=== PATIENT | female | born 1965 | race Caucasian/White ===

== ENCOUNTER 2020-09-16 06:02 | Day surgery (SDC) | payer OTHER ==
[2020-09-15 15:34] VITALS: BMI 41.5
[2020-09-16] MEDS ORDERED: MIDAZOLAM HCL 2 MG/2 ML SINGLE DOSE VIAL ONE (09:38)
[2020-09-16] MEDS ORDERED: ACETAMINOPHEN 325 MG TABLET (FP) PO PRN (10:04)
[2020-09-16] MEDS ORDERED: ONDANSETRON 4 MG/2 ML VIAL IVPUSH PRN (10:04)
[2020-09-16] MEDS ORDERED: oxyCODONE HCL 5 MG TABLET PO PRN (10:04)
[2020-09-16] MEDS ORDERED: LACTATED RINGERS SOLUTION 1,000 ML IV SCH (10:15)
[2020-09-16 11:03] VITALS: TEMP 97.8
[2020-09-16 13:28] VITALS: BP 102/68; PULSE 58
== END 2020-09-16 12:30 | disposition home or self-care (01) ==
LOC: EDBD → JASU-SURG 06:02
PROVIDERS: ATTEND Urology
PROC: 0TF4XZZ Fragmentation in Left Kidney Pelvis, External Approach (ICD-10-PCS; principal; 2020-09-16 09:30)
DX: N20.0 Calculus of kidney (principal); I10 Essential (primary) hypertension; E11.9 Type 2 diabetes mellitus without complications; Z79.84 Long term (current) use of oral hypoglycemic drugs
CPT/HCPCS: 82962